=== PATIENT | female | born 1995 | race Caucasian/White ===

== ENCOUNTER 2017-06-05 11:31 | Emergency (ER) | payer OTHER ==
[2017-06-05] MEDS ORDERED: Famotidine IV* 10 MG/ML 2 ML (20 mg) IV ONE (12:20)
[2017-06-05] MEDS ORDERED: NS 0.9% 1000 ML* 1,000 ML IV ONE (12:20)
[2017-06-05] MEDS ORDERED: Ondansetron INJ* 2 MG/ML VIAL IV ONE (12:20)
[2017-06-05 12:52] LABS: ABS Basophils 0 10^3/ul (0-0.2); ABS Eosinophils 0.1 10^3/ul (0-0.6); ABS Lymphocytes 0.4 10^3/ul (1.0-4.8); ABS Monocytes 0.6 10^3/ul (0-0.8); ABS Neutrophils 13.9 10^3/ul (1.5-7.7); ABS Nucleated RBC 0 10^3/ul; Eosinophil % 0.5 % (0-6); Hematocrit 40 % (35-47); Hemoglobin 13.7 g/dl (12.0-16.0); Lymphocyte % 2.5 % (25-47); Mean Corpuscular HGB Conc 34 g/dl (31-36); Mean Corpuscular Hemoglobin 28 pg (27-31); Mean Corpuscular Volume 83 fL (80-97); Mean Platelet Volume 6.8 um3 (7.4-10.4); Nucleated Red Blood Cells % 0; Platelet Count 299 10^3/ul (150-450); Red Blood Count 4.89 10^6/ul (4.0-5.4); Red Cell Distribution Width 13 % (10.5-15)
[2017-06-05 12:55] LABS: Urine Appearance Clear; Urine Blood Negative (Negative); Urine Color Yellow; Urine Ketones Negative (Negative); Urine Protein Negative (Negative); Urine Specific Gravity 1.021 (1.010-1.030); Urine Urobilinogen Negative (Negative)
[2017-06-05 15:21] VITALS: BP 114/66
--- NOTE | 2017-06-06 10:13 | ED ---
Ernst Lees Angela, scribed for Neal Bangura MD on 06/05/17 at 1234 . GI/ HPI - HPI Summary HPI Summary: This pt is a 21 y/o female presenting to [facility] c/o nausea, vomiting, and diarrhea since 02:00 today. Pt reports she has been unable to keep anything down. Pt additionally notes dizziness. She states she is lactose intolerant and had coffee and a bagel with cream cheese yesterday. Pt reports 3 episodes of diarrhea, not very watery, nonbloody. Denies abdominal pain. Denies drug or tobacco use. She notes she drinks alcohol occasionally. Denies any PMHx. - History of Current Complaint Chief Complaint: EDNauseaVomitDiarrh Time Seen by Provider: 06/05/17 12:19 Stated Complaint: ABD PAIN/VOMITING Hx Obtained From: Patient Onset/Duration: Started Hours Ago, Still Present Timing: Lasting Hours Current Severity: Moderate Pain Intensity: 0 - denies pain Associated Signs and Symptoms: Positive: Dizziness, Nausea, Vomiting, Diarrhea. Negative: Fever, Abdominal Pain Aggravating Factor(s): Nothing Alleviating Factor(s): Nothing - Allergy/Home Medications Allergies/Adverse Reactions: Allergies Allergy/AdvReac Type Severity Reaction Status Date / Time amoxicillin Allergy Intermediate Hives Verified 06/05/17 12:33 Penicillins Allergy Intermediate Hives Verified 06/05/17 12:33 lactose AdvReac Mild GI Upset Verified 06/05/17 12:33 Home Medications: Home Medications Claritin 10 MG TAB(NF) 10 mg PO DAILY PRN 06/05/17 [History Confirmed 06/05/17] Melatonin 3 mg Tablet 3 mg PO QPM PRN 06/05/17 [History Confirmed 06/05/17] PMH/Surg Hx/FS Hx/Imm Hx Endocrine/Hematology History: Denies: Hx Diabetes Cardiovascular History: Reports: Other Cardiovascular Problems/Disorders - murmur Denies: Hx Hypertension Infectious Disease History: No Infectious Disease History: Denies: Traveled Outside the [place] in Last 30 Days - Family History Known Family History: Positive: Cardiac Disease - Father: cardiomyopathy Family History: CA. Lupus. - Social History Alcohol Use: Weekly Substance Use Type: Reports: None Smoking Status (MU): Never Smoked Tobacco Review of Systems Negative: Fever Positive: Vomiting, Diarrhea, Nausea. Negative: Abdominal Pain Genitourinary: Negative Musculoskeletal: Negative Neurological: Other - POS: dizziness All Other Systems Reviewed And Are Negative: Yes Physical Exam - Summary Physical Exam Summary: VITAL SIGNS: Reviewed. GENERAL: Patient is a well-developed and nourished female who is lying comfortable in the stretcher. Patient is not in any acute respiratory distress. HEAD AND FACE: No signs of trauma. No ecchymosis, hematomas or skull depressions. No sinus tenderness. EYES: PERRLA, EOMI x 2, No injected conjunctiva, no nystagmus. EARS: Hearing grossly intact. Ear canals and tympanic membranes are within normal limits. MOUTH: Oropharynx within normal limits. Dry oral mucosa. NECK: Supple, trachea is midline, no adenopathy, no JVD, no carotid bruit, no c- spine tenderness, neck with full ROM. CHEST: Symmetric, no tenderness at palpation LUNGS: Clear to auscultation bilaterally. No wheezing or crackles. CVS: Regular rate and rhythm, S1 and S2 present, no murmurs or gallops appreciated. ABDOMEN: Soft, non-tender. No signs of distention. No rebound no guarding, and no masses palpated. Bowel sounds are normal. EXTREMITIES: FROM in all major joints, no edema, no cyanosis or clubbing. NEURO: Alert and oriented x 3. No acute neurological deficits. Speech is normal and follows commands. SKIN: Dry and warm Triage Information Reviewed: Yes Vital Signs On Initial Exam: Initial Vitals Temp Pulse Resp BP Pulse Ox 99.8 F 95 16 139/91 99 06/05/17 11:40 06/05/17 11:40 06/05/17 11:40 06/05/17 11:40 06/05/17 11:40 Vital Signs Reviewed: Yes Diagnostics - Vital Signs Vital Signs Temp Pulse Resp BP Pulse Ox 06/05/17 11:40 99.8 F 95 16 139/91 99 - Laboratory Result Diagrams: 06/05/17 12:36 06/05/17 12:36 Lab Statement: Any lab studies that have been ordered have been reviewed, and results considered in the medical decision making process. GIGU Course/Dx - Course Assessment/Plan: This pt is a 21 y/o female presenting to [facility] c/o nausea, vomiting, and diarrhea since 02:00 today. Pt reports she has been unable to keep anything down. Pt additionally notes dizziness. She states she is lactose intolerant and had coffee and a bagel with cream cheese yesterday. Pt reports 3 episodes of diarrhea, not very watery, nonbloody. Denies abdominal pain. Denies drug or tobacco use. She notes she drinks alcohol occasionally. Denies any PMHx. Test results without any significant abnormalities except for WBC of 15, glucose of 113. In the ED course the pt was given IV fluids, Pepcid, and Zofran. After these medications the pt is feeling better. She is eating and drinking without any nausea or vomiting. Therefore she will be discharged to home with follow up from her PCP. I discussed all the findings and test results with the patient. All questions were answered to patient satisfaction. There were no further complaints or concerns. Pt will be given a prescription for Zofran. She is instructed to return to the ED for any worsening or new symptoms. Pt is hemodynamically stable, alert and oriented x3. - Diagnoses Provider Diagnoses: Nausea and vomiting Discharge - Sign-Out/Discharge Documenting (check all that apply): Discharge - discharge to home - Discharge Plan Condition: Stable Disposition: HOME Prescriptions: Ondansetron TAB* [Zofran 4 MG Tab*] 4 mg PO Q6H PRN #10 tab PRN Reason: Vomiting Patient Education Materials: Acute Nausea and Vomiting (ED) Referrals: [facility] [Primary Care Provider] - 3 Days Additional Instructions: Please follow up with your primary care provider. RETURN TO THE ED FOR ANY NEW OR WORSENING SYMPTOMS. The documentation as recorded by the Ernst ahumada Angela accurately reflects the service I personally performed and the decisions made by me, Neal Bangura MD.
== END 2017-06-05 15:22 | disposition home or self-care (01) ==
LOC: ED 11:31
DX: R11.2 Nausea with vomiting, unspecified (principal); R19.7 Diarrhea, unspecified; R42 Dizziness and giddiness; Z32.02 Encounter for pregnancy test, result negative; R01.1 Cardiac murmur, unspecified; Z88.0 Allergy status to penicillin
CPT/HCPCS: 36415; 80053; 81003; 81015; 83690; 83735; 84702; 85025; 86140; 87086; 96361; 96374; 96375; 99282; J2405